=== PATIENT | female | born 1980 | race Caucasian/White ===

== ENCOUNTER 2021-03-03 22:39 | Emergency (ER) | payer MEDICAID ==
[~2021-03-03] VITALS: Ht 165.1 cm; Wt 97.7 kg
[~2021-03-03 22:39] MED LIST: HYDR-4383 PO; NAPR-1154 PO
[2021-03-03 22:57] VITALS: BP 142/84
== END 2021-03-04 01:45 | disposition left against medical advice (07) ==
LOC: ER 22:40
DX: M25.552 Pain in left hip (principal); R07.81 Pleurodynia; M25.512 Pain in left shoulder; M25.511 Pain in right shoulder; Z53.21 Procedure and treatment not carried out due to patient leaving prior to being seen by health care provider

== ENCOUNTER 2021-06-04 21:12 | Emergency (ER) | payer MEDICAID, OTHER ==
[~2021-06-04] VITALS: Ht 165.1 cm; Wt 96.0 kg
[2021-06-04 21:18] VITALS: BP 144/95
[2021-06-04] MEDS ORDERED: CYCL-1 PO (22:53)
== END 2021-06-04 23:03 | disposition home or self-care (01) ==
LOC: ER 21:13
DX: M54.2 Cervicalgia (principal); M62.838 Other muscle spasm; M50.30 Other cervical disc degeneration, unspecified cervical region; G89.29 Other chronic pain; Z88.6 Allergy status to analgesic agent; Z79.899 Other long term (current) drug therapy
CPT/HCPCS: 99283

== ENCOUNTER 2022-02-07 15:08 | Emergency (ER) | payer MEDICAID ==
[~2022-02-07] VITALS: Ht 165.1 cm; Wt 90.9 kg
[~2022-02-07 15:08] MED LIST changes: +CYCL-1 PO
[2022-02-07] MEDS ORDERED: gabapentin 100mg capsule PO ONE (16:50)
[2022-02-07] MEDS ORDERED: acetaminophen 325mg tablet PO ONE (16:50)
[2022-02-07] MEDS ORDERED: orphenadrine citrate 60mg/2ml inj. IM ONE (16:50)
[2022-02-07] MEDS ORDERED: ketorolac tromethamine 15mg/ml inj. IM ONE (16:50)
[2022-02-07] MEDS ORDERED: CYCL-1 PO (17:48)
[2022-02-07 18:05] VITALS: BP 141/88
== END 2022-02-07 18:32 | disposition home or self-care (01) ==
LOC: ER 15:09
DX: M54.32 Sciatica, left side (principal); G89.29 Other chronic pain; Z88.5 Allergy status to narcotic agent; Z79.899 Other long term (current) drug therapy
CPT/HCPCS: 96372; 99284; J1885; J2360

== ENCOUNTER 2022-03-08 16:42 | Emergency (ER) | payer MEDICAID ==
[~2022-03-08] VITALS: Ht 165.1 cm; Wt 86.0 kg
[2022-03-08 16:53] VITALS: BP 152/112
[2022-03-08] MEDS ORDERED: HYDROcodone/acetaminophen 10/325mg tab PO ONE (17:40)
[2022-03-08] MEDS ORDERED: dexamethasone sod phosphate 10mg/ml inj IM STA (19:38)
--- NOTE | 2022-03-08 20:34 | NUR ---
PT TO MRI WITH TECH
--- NOTE | 2022-03-08 21:07 | NUR ---
PT BACK FROM MRI
== END 2022-03-09 02:30 | disposition left against medical advice (07) ==
LOC: ER 16:43
DX: M54.59 Other low back pain (principal); G89.29 Other chronic pain; R15.9 Full incontinence of feces; W18.11XA Fall from or off toilet without subsequent striking against object, initial encounter; Y93.89 Activity, other specified; Y92.89 Other specified places as the place of occurrence of the external cause; Y99.8 Other external cause status
CPT/HCPCS: 72100; 72148; 96372; 99284; J1100